=== PATIENT | male | born 1995 | race Caucasian/White ===

== ENCOUNTER 2017-10-19 10:02 | Outpatient (CLI) | payer MEDICAID ==
[~2017-10-19 10:02] MED LIST: ACET-2144 GT; AMOX400S76 PEG; ARIP5TAB4 GT; BACL20TA GT; CARB15DR23 EACH EAR; DOCU50LI24 PEG; HYDR20OI TP; IBUP100O24 GT; MINE105O TOP; OMEP40CA37 GT; TIZA4CAP GT; VAL5T GT; [UNRECOGNIZED DRUG - CODE] TOP; [UNRECOGNIZED DRUG - CODE] TOP
== END 2017-10-19 23:59 | disposition home or self-care (01) ==
LOC: RAD 10:02
PROVIDERS: ATTEND Family Medicine
DX: R56.9 Unspecified convulsions (principal)
CPT/HCPCS: 95816

== ENCOUNTER 2018-03-29 20:51 | Emergency (ER) | payer MEDICAID ==
[~2018-03-29] VITALS: Ht 182.9 cm; Wt 73.3 kg
[2018-03-29] MEDS ORDERED: normal saline 1000ML IV soln IVB ONE (21:15)
[2018-03-29] MEDS ORDERED: ondansetron/PF 4mg/2ml inj IV ONE (21:15)
[2018-03-29 21:55] LABS: ALANINE AMINOTRANSFERASE 127 U/L (12-78); ALBUMIN 4.2 G/DL (3.4-5.0); ALKALINE PHOSPHATASE 99 IU/L (46-116); ANION GAP 10 (8-16); ASPARTATE AMINO TRANSFERASE 64 U/L (10-37); BILIRUBIN,TOTAL 1.1 MG/DL (0.1-1.0); BLOOD UREA NITROGEN 17 MG/DL (7-18); BUN/CREATININE RATIO 17.2 (5.4-32.0); CHLORIDE 98 MMOL/L (99-107); CREATININE 0.99 MG/DL (0.60-1.10); GLUCOSE 101 MG/DL (70-104); SODIUM 138 MMOL/L (135-145); TOTAL CARBON DIOXIDE 30.5 MMOL/L (24-32); TOTAL PROTEIN 8.3 G/DL (6.4-8.2); eGFR > 90 ML/MIN
[2018-03-29 21:56] LABS: POTASSIUM 4.1 MMOL/L (3.5-5.1)
[2018-03-29 22:15] LABS: BASOPHILS % (AUTO) 0.3 % (0-1); EOSINOPHILS % (AUTO) 0 % (0-6); HEMATOCRIT 47.2 % (42.0-52.0); HEMOGLOBIN 16.6 g/dl (14.0-17.9); LYMPHOCYTES # (AUTO) 0.3 X10'3 (1.1-4.8); LYMPHOCYTES % (AUTO) 6.8 % (21-51); MEAN CORPUSCULAR HEMOGLOBIN 33.5 PG (27.0-31.0); MEAN CORPUSCULAR HGB CONC 35.2 % (33.0-36.5); MEAN PLATELET VOLUME 13.8 FL (7.4-10.4); MONOCYTES # (AUTO) 0.4 X10'3 (0-0.9); NEUTROPHILS # (AUTO) 3.9 X10'3 (1.8-7.7); NEUTROPHILS % (AUTO) 84.9 % (42-75); RED BLOOD COUNT 4.97 X10'6 (4.70-6.10); RED CELL DISTRIBUTION WIDTH 11.8 % (11.5-14.5); WHITE BLOOD COUNT 4.6 X10'3 (4.5-11.0)
[2018-03-29 22:26] LABS: CLARITY,URINE CLEAR (Clear); COLOR,URINE YELLOW (Yellow); GLUCOSE, URINE NEGATIVE (Neg); KETONES,URINE NEGATIVE (Neg); LEUKOCYTE ESTERASE ,URINE NEGATIVE (Neg); NITRITES, URINE NEGATIVE (Neg); OCCULT BLOOD,URINE NEGATIVE (Neg); PROTEIN,URINE TRACE mg/dl (Neg)
[2018-03-29 22:27] LABS: PLATELET COUNT 107 X10'3 (140-440)
[2018-03-29 22:31] LABS: UA COLLECTION TYPE CLN CATCH MIDSTREAM
[2018-03-29 22:32] LABS: BACTERIA,URINE FEW /HPF (Neg); RBC,URINE NONE SEEN /HPF (0-2); SQUAMOUS EPITHELIAL CELL,UR FEW /LPF (FEW); WBC,URINE NONE SEEN /HPF (0-4)
[2018-03-29] MEDS ORDERED: ONDA4SOL2 PO (22:44)
[2018-03-29 23:12] VITALS: BP 148/118
== END 2018-03-29 23:15 | disposition home or self-care (01) ==
LOC: ER 20:51
DX: E86.0 Dehydration (principal); A08.4 Viral intestinal infection, unspecified; M24.542 Contracture, left hand; M24.541 Contracture, right hand; M24.574 Contracture, right foot; M24.575 Contracture, left foot; G80.8 Other cerebral palsy; Z98.890 Other specified postprocedural states; Z91.040 Latex allergy status; Z79.899 Other long term (current) drug therapy
CPT/HCPCS: 36415; 80053; 81001; 85025; 96361; 96374; 99284; J2405; J7030; P9612

== ENCOUNTER 2018-08-19 14:47 | Emergency (ER) | payer MEDICAID ==
[~2018-08-19] VITALS: Ht 182.9 cm; Wt 70.9 kg
[~2018-08-19 14:47] MED LIST changes: +ONDA4SOL2 PO
[2018-08-19] MEDS ORDERED: DEC4T PO (15:32)
[2018-08-19] MEDS ORDERED: AZIT200S47 PO (15:32)
[2018-08-19 15:42] VITALS: BP 117/87
== END 2018-08-19 15:45 | disposition home or self-care (01) ==
LOC: ER 14:47
DX: J20.9 Acute bronchitis, unspecified (principal); Z91.040 Latex allergy status
CPT/HCPCS: 99283

== ENCOUNTER 2021-08-26 12:45 | Emergency (ER) | payer MEDICAID ==
[~2021-08-26] VITALS: Ht 170.2 cm; Wt 95.0 kg
[~2021-08-26 12:45] MED LIST changes: -ACET-2144 GT; +ACET-3209 GT; +ARIP5TAB14 GT; -ARIP5TAB4 GT; +CARB-273 EACH EAR; -CARB15DR23 EACH EAR; +DEC4T PO; +DIAZ5TAB22 GT; +OMEP40CA21 GT; -OMEP40CA37 GT; -VAL5T GT
[2021-08-26 12:47] VITALS: BP 123/71
[2021-08-26] MEDS ORDERED: levetiracetam inj 1,000 MG in normal saline 100ml IV soln 90 ML IV STA (13:12)
[2021-08-26] MEDS ORDERED: LORazepam 2 mg/ml vial IV ONE (13:15)
[2021-08-26] MEDS ORDERED: normal saline 1000ML IV soln IVB ONE (13:15)
[2021-08-26 13:29] LABS: BASOPHILS % (AUTO) 0.4 % (0-1); EOSINOPHILS # (AUTO) 0.2 X10'3 (0-0.9); EOSINOPHILS % (AUTO) 3.1 % (0-6); HEMATOCRIT 48.5 % (42.0-52.0); HEMOGLOBIN 16.7 g/dl (14.0-17.9); LYMPHOCYTES # (AUTO) 1.6 X10'3 (1.1-4.8); LYMPHOCYTES % (AUTO) 29.1 % (21-51); MEAN CORPUSCULAR HEMOGLOBIN 32.5 PG (27.0-31.0); MEAN CORPUSCULAR HGB CONC 34.5 g/dL (33.0-36.5); MEAN CORPUSCULAR VOLUME 94.4 FL (78-98); MONOCYTES # (AUTO) 0.3 X10'3 (0-0.9); MONOCYTES % (AUTO) 6.3 % (2-12); NEUTROPHILS # (AUTO) 3.3 X10'3 (1.8-7.7); NEUTROPHILS % (AUTO) 61.1 % (42-75); PLATELET COUNT 124 X10'3 (140-440); RED BLOOD COUNT 5.13 X10'6 (4.70-6.10); RED CELL DISTRIBUTION WIDTH 12.5 % (11.5-14.5); WHITE BLOOD COUNT 5.4 X10'3 (4.5-11.0)
[2021-08-26] MEDS ORDERED: levetiracetam-NS 1000mg/100ml 100 ML IV STA (13:29)
[2021-08-26 13:42] LABS: ALANINE AMINOTRANSFERASE 55 U/L (12-78); ALBUMIN 4.3 G/DL (3.4-5.0); ALBUMIN/GLOBULIN RATIO 1.1 (1.1-1.5); ALKALINE PHOSPHATASE 97 IU/L (46-116); ANION GAP 8 (8-16); ASPARTATE AMINO TRANSFERASE 23 U/L (10-37); BILIRUBIN,TOTAL 0.7 MG/DL (0.1-1.0); BLOOD UREA NITROGEN 14 MG/DL (7-18); BUN/CREATININE RATIO 17.1 (5.4-32.0); CALCIUM 9.5 MG/DL (8.5-10.1); CHLORIDE 104 MMOL/L (99-107); CREATININE 0.82 MG/DL (0.60-1.10); GLUCOSE 87 MG/DL (70-104); POTASSIUM 4.8 MMOL/L (3.5-5.1); SODIUM 140 MMOL/L (135-145); TOTAL CARBON DIOXIDE 28.2 MMOL/L (24-32); TOTAL PROTEIN 8.1 G/DL (6.4-8.2); eGFR > 90 ML/MIN
[2021-08-26 13:54] LABS: LARGE PLATELETS FEW; PLATELET ESTIMATE DECREASED
[2021-08-26] MEDS ORDERED: KEP500T PO (14:02)
[2021-08-26 14:28] LABS: CREATINE KINASE 71 U/L (39-308)
== END 2021-08-26 16:15 | disposition home or self-care (01) ==
LOC: ER 12:46
DX: R56.9 Unspecified convulsions (principal); D69.6 Thrombocytopenia, unspecified; Z98.890 Other specified postprocedural states; Z60.2 Problems related to living alone; Z91.040 Latex allergy status; Z79.2 Long term (current) use of antibiotics; Z79.899 Other long term (current) drug therapy
CPT/HCPCS: 36415; 80053; 82550; 85008; 85025; 96361; 96365; 96375; 99284; J1953; J2060; J7030